=== PATIENT | female | born 1940 | race Caucasian/White ===

== ENCOUNTER 2022-05-09 06:47 | Day surgery (SDC) | payer MEDICARE ==
[2022-05-09] MEDS ORDERED: LIDOCAINE HCL 1% 50 MG/5 ML VL PF IJ ONE (06:48)
[2022-05-09] MEDS ORDERED: Epinephrine Preservative Free 1 MG/ML IJ ONE (06:48)
[2022-05-09] MEDS ORDERED: Visionblue IO ONE (06:48)
[2022-05-09] MEDS ORDERED: MIOSTAT IO ONE (06:48)
[2022-05-09] MEDS ORDERED: Ak-Dilate OPHTHALMIC*** 1.065 ML, Cyclogyl 1% OPHTH SOL 1.065 ML, GATIFLOXACIN 0.5% OPH... OP ONE ×4 (07:00)
[2022-05-09] MEDS ORDERED: NON-FORMULARY ITEM OP ONE (07:00)
[2022-05-09] MEDS ORDERED: cefUROXime sodium 0.005 GM in Sodium Chloride Flush 30 ML*** 0.5 ML IJ ONE (07:00)
[2022-05-09] MEDS ORDERED: TETRACAINE 0.5% STERI-UNIT SOL OP ONE ×2 (07:00)
[2022-05-09] MEDS ORDERED: BETADINE 5% OPHTHALMIC 30 ML OP ONE (07:00)
[2022-05-09] MEDS ORDERED: Lactated Ringers 1,000 ML IV SCH (07:00)
[2022-05-09] MEDS ORDERED: Lactated Ringers 1,000 ML IV ONE (07:08)
[2022-05-09] MEDS ORDERED: APRESOLINE 20 MG/ML INJ IV ONE (08:12)
[2022-05-09] MEDS ORDERED: APRESOLINE 20 MG/ML INJ ONE (08:16)
[2022-05-09] MEDS ORDERED: Xylocaine-Mpf 2% 5 Ml Vial ONE (08:58)
[2022-05-09] MEDS ORDERED: DIPRIVAN 200 MG/20 ML IV ONE (08:58)
[2022-05-09] MEDS ORDERED: Zofran 4 MG/2 ML VIAL IV PRN (09:00)
[2022-05-09] MEDS ORDERED: ACETAZOLAMIDE 250 MG TABLET PO ONE (09:00)
[2022-05-09] MEDS ORDERED: PHENYLEPHRINE HCL ONE (09:29)
[2022-05-09 09:58] VITALS: O2SAT 97
[2022-05-09 10:08] VITALS: BP 134/70; PULSE 81
== END 2022-05-09 10:06 | disposition home or self-care (01) ==
LOC: SDC 06:47
PROVIDERS: ATTEND Ophthalmology
DX: H25.812 Combined forms of age-related cataract, left eye (principal); E11.9 Type 2 diabetes mellitus without complications
CPT/HCPCS: 66982; 82947; C1780; J0171; J0360; J2001; J2370; J2704; A9270-GY